=== PATIENT | female | born 1955 | race Caucasian/White ===

== ENCOUNTER 2019-05-05 14:02 | Emergency (ER) | payer OTHER, SELFPAY ==
[2019-05-05 14:18] VITALS: BP 141/76; PULSE 83; RESP 16; TEMP 36.6; O2SAT 99
--- NOTE | 2019-05-05 15:18 | ED.FEMALEGU ---
HPI - Female Genitourinary General Chief complaint: Urogenital-Female Stated complaint: blood in urine Time Seen by Provider: 05/05/19 15:30 Source: patient and RN notes reviewed Mode of arrival: ambulatory Limitations: no limitations History of Present Illness HPI Narrative: 64-year-old female who presents to [facility] care with complaints of urgency, and noting blood in her urine this morning and having some perineum area pressure. Patient states she has no CVA tenderness, denies any burning with her urination or acute pain. Patient states that she has had previous partial hysterectomy and bladder surgery. Patient denies any known fevers, chills,or sweats, denies any nausea, vomiting, or any abdominal pain. Patient denies any vaginal discharge or itching in perineal area. Patient denies any history of diabetes or any history of kidney disease MD elicited complaint: other (Blood in urine, urinary urgency) Pertinent past history: other (Past UTIs) Onset (ago): hour(s) (started this morning) Location of symptoms: perineum (pressure sensation) Severity: mild Female Urogenital Radiation: Non-Radiating Quality of pain: other (pressure) Consistency: intermittent Vaginal discharge: none Vaginal bleeding: none Urinary symptoms: Urgency and Hematuria Exacerbating factors: none Relieving factors: none Associated symptoms: denies other symptoms Treatment prior to arrival: none Sexual activity: No Patient : No Possible : postmenopausal Related Data Home Medications Medication Instructions Recorded Confirmed atorvastatin 20 mg PO DAILY 05/05/19 05/05/19 escitalopram oxalate 10 mg PO DAILY 05/05/19 05/05/19 Allergies Allergy/AdvReac Type Severity Reaction Status Date / Time No Known Allergies Allergy Verified 05/05/19 15:22 Review of Systems Review of Systems: Narrative: CONSTITUTIONAL: Denies fever, chills, or sweats. EYES: Denies visual changes, redness, or discharge. ENT: Denies rhinorrhea, congestion, sore throat, or otalgia. CARDIOVASCULAR: Denies chest pain, palpitations, or edema. RESPIRATORY: Denies cough or dyspnea. GASTROINTESTINAL: Denies abdominal pain, nausea, vomiting, or diarrhea. GENITOURINARY: Denies dysuria positive hematuria and urgency, perineum pressure SKIN: Denies rash or itching. MUSCULOSKELETAL: Denies back pain, joint pain, or myalgia. NEUROLOGIC: Denies headache, numbness to right thigh recent diagnosed with cyst on spine to see neurosurgeon in June, denies any weakness. PSYCHIATRIC: history anxiety or depression. All systems reviewed & are unremarkable except as noted in HPI and below PMFSH Past Medical History Medical History (Updated 05/10/19 @ 17:30 by Maribell Taylor NP) Bronchitis Depression TIA (transient ischemic attack) UTI (urinary tract infection) Surgical History Surgical History (Updated 05/10/19 @ 17:32 by Maribell Taylor NP) History of bladder surgery History of partial hysterectomy Hx of laparoscopic gastric banding Social History Social History (Updated 05/05/19 @ 15:35 by Maribell Taylor NP) Smoking status: Never smoker Living arrangements: with family Gender identity (if verbalized by the patient): Female Comments At time of signature, agree with nursing past medical, , social history. There is no relevant family history pertinent to the presenting complaint Exam Narrative: Exam Narrative: GENERAL: Well-appearing, well-nourished, and in no acute distress. HEAD: Normocephalic, atraumatic. EYES: PERRLA and EOMI. ENT: Nares clear, no rhinorrhea or epistaxis. Mucous membranes moist. NECK: Supple. CHEST: Clear to auscultation. No respiratory distress. HEART: Regular rate and rhythm. No murmur heard. Normal peripheral pulses. ABDOMEN: Soft, nontender, nondistended, normal active bowel sounds.pressure in perineum, no CVA tenderness EXTREMITIES: Normal range of motion. No edema, has some numbness to right thigh and feelings of it being cold,
== END 2019-05-05 15:48 | disposition home or self-care (01) ==
PROVIDERS: Emergency Provider Registered Nurse; PCP Internal Medicine Geriatric Medicine
DX: N39.0 Urinary tract infection, site not specified (principal); Z86.73 Personal history of transient ischemic attack (TIA), and cerebral infarction without residual deficits; Z90.711 Acquired absence of uterus with remaining cervical stump
CPT/HCPCS: 81003; 87077; 87086; 87088; 87186; 99213; G0463

== ENCOUNTER 2020-05-08 13:15 | Emergency (ER) | payer MEDICARE, SELFPAY ==
[2020-05-08 13:23] VITALS: BP 147/98; PULSE 83; RESP 16; TEMP 35.9; O2SAT 98
--- NOTE | 2020-05-08 13:30 | ED.FEMALEGU ---
HPI - Female Genitourinary General Chief complaint: Urogenital-Female Stated complaint: Uti w/blood Time Seen by Provider: 05/08/20 13:31 Source: patient and RN notes reviewed History of Present Illness HPI Narrative: Patient is a 65-year-old female who presents the urgent care with complaints of a possible UTI. Patient states that yesterday she noticed her urine was cloudy and smelly and then woke up this morning with increased frequency, urgency, blood in the urine and dysuria. Patient denies of any fever, chills, nausea, vomiting, abdominal pain, low back pain. Patient states that she is a heavy soda drinker and does have UTIs on occasion. Patient denies of any diagnosis of UTI in the last 6 months. Patient states that she did have recent lab work and everything was fine back in December . Patient has taken cranberry juice for her symptoms. No other acute complaints. No acute distress noted. Patient aware of the plan of care. Some parts of this dictation were generated by voice recognition software and may contain typographical and/or grammatical inaccuracies. Related Data Home Medications Medication Instructions Recorded Confirmed atorvastatin 20 mg PO DAILY 05/05/19 05/08/20 escitalopram oxalate 10 mg PO DAILY 05/05/19 05/08/20 aspirin 81 mg PO DAILY 05/08/20 05/08/20 ergocalciferol (vitamin D2) 1,250 mcg PO DAILY 05/08/20 05/08/20 gabapentin 100 mg PO DAILY 05/08/20 05/08/20 Allergies Allergy/AdvReac Type Severity Reaction Status Date / Time No Known Allergies Allergy Verified 05/05/19 15:22 Review of Systems Review of Systems: Narrative: CONSTITUTIONAL: Denies fever, chills, or sweats. EYES: Denies visual changes, redness, or discharge. ENT: Denies rhinorrhea, congestion, sore throat, or otalgia. CARDIOVASCULAR: Denies chest pain, palpitations, or edema. RESPIRATORY: Denies cough or dyspnea. GASTROINTESTINAL: Denies abdominal pain, nausea, vomiting, or diarrhea. GENITOURINARY: Reports of dysuria, hematuria, urgency, frequency, suprapubic pressure SKIN: Denies rash or itching. MUSCULOSKELETAL: Denies back pain, joint pain, or myalgia. NEUROLOGIC: Denies headache, numbness, or weakness. All other systems reviewed are negative, except as documented in HPI. [facility] Past Medical History Medical History (Updated 05/08/20 @ 13:48 by NATALIE Cai) Bronchitis Depression TIA (transient ischemic attack) UTI (urinary tract infection) Surgical History Surgical History (Updated 05/10/19 @ 17:32 by Maribell Taylor NP) History of bladder surgery History of partial hysterectomy Hx of laparoscopic gastric banding Social History Social History (Updated 05/05/19 @ 15:35 by Maribell Taylor NP) Smoking status: Never smoker Gender identity (if verbalized by the patient): Female Comments At the time of my signature, I reviewed and agree with the nursing past medical, surgical, social, and family history. There is no relevant family history pertinent to the patient complaint. Exam Narrative: Exam Narrative: GENERAL: This is a well-nourished, well-developed patient, in no apparent distress. HEAD: normocephalic, atraumatic. EYES: PERRL. Sclera clear/white. Vision is grossly intact. EARS: External ears normal NOSE: External nose normal with no obvious nasal discharge, nares without redness, no rhinorrhea. THROAT: Mucous membranes moist NECK: Neck supple GASTROINTESTINAL: Abdomen soft, mild left lower abdominal tenderness, nondistended. SKIN: warm, intact with no suspicious lesions or rash, good texture and turgor. NEURO: awake, alert, and oriented to person, place and time. There were no obvious focal neurologic abnormalities. EXTREMITIES: No clubbing, cyanosis, or edema. BACK: Negative bilateral CVA tenderness Course Vital Signs Vital signs: Vital Signs Temperature 96.7 F L 05/08/20 13:23 Pulse Rate 83 05/08/20 13:23 Respiratory Rate 16 05/08/20 13:23 Blood Pressure 147/98 H
== END 2020-05-08 13:51 | disposition home or self-care (01) ==
PROVIDERS: Emergency Provider Nurse Practitioner Family; PCP Internal Medicine Geriatric Medicine
DX: N39.0 Urinary tract infection, site not specified (principal); F32.9 Major depressive disorder, single episode, unspecified; Z86.73 Personal history of transient ischemic attack (TIA), and cerebral infarction without residual deficits
CPT/HCPCS: 81003; 87077; 87086; 87088; 87186; 99213; G0463

== ENCOUNTER 2024-04-16 08:26 | Emergency (ER) | payer MEDICARE, SELFPAY ==
--- OUTSIDE RECORDS SUMMARY | 2024-04-16 08:37 | XMS_ITS | Clinical Summary ---
Author Organization [facility] Address [address] [address] Care Team Providers Care Security Systems Integrator Name Role Phone Fahad Duffy MD Primary Care Provider [phone] Source Comments [facility],non-owned Affiliates and Associated Physician Practices is amultiple site organization consisting of ambulatory clinics and hospital sitesin [place], [place], [place] and [place]. This disclosure is being madepursuant to the Care Everywhere program and may not contain all information available regarding this patient. Last updated 17.[facility] Allergies No known active allergies Medications * Be aware that medications may not be up to date on this document. Alwaysverify current medications with the patient. Medication Sig Dispensed Refills Start Date End Date Status DULoxetine (CYMBALTA) 30 MG capsuleIndications: Major Depressive Disorder Take 30 mg by mouth at bedtime. Indications: Major Depressive Disorder 06/21/2010 Active docusate sodium (COLACE) 100 MG capsule Take 1 Cap by mouth 2 times daily. 100 Cap 5 06/22/2010 Active oxycodone-acetamino phen (PERCOCET) 5-325 MG tablet Take 1 Tab by mouth every 6 hours as needed for Pain. 30 Tab 0 06/22/2010 Active ciprofloxacin (CIPRO) 250 MG tablet Take 1 Tab by mouth daily. This prescription is only required if patient is sent home with a catheter; otherwise, it may be disregarded. 14 Tab 0 06/22/2010 Active Active Problems No known active problems Social History Tobacco Use Types Packs/Day Years Used Date Smoking Tobacco: Never Alcohol Use Standard Drinks/Week Comments No 0 (1 standard drink = 0.6 oz pur e alcohol) Sex and Gender Information Value Date Recorded Sex Assigned at Not on file Gender Identity Not on file Sexual Orientation Not on file Last Filed Vital Signs Vital Sign Reading Time Taken Comments Blood Pressure 102/61 06/22/2010 4:05 PM CDT Pulse 67 06/22/2010 4:05 PM CDT Temperature 36.7 ??C (98.1 ??F) 06/22/2010 4:05 PM CD T Respiratory Rate 20 06/22/2010 4:05 PM CDT Oxygen Saturation 99% 06/22/2010 4:05 PM CDT Inhaled Oxygen Concentration - - Weight 87.9 kg (193 lb 12.6 oz) 06/21/2010 4:00 PM CDT Height 152.4 cm (5') 06/21/2010 4:00 PM CDT Body Mass Index 37.85 06/21/2010 4:00 PM CDT Plan of Treatment Health Maintenance Due Date Last Done Comments BONE DENSITY TESTING 1955 COLOGUARD (AGES 45-75) - COL ON CA SCREENING 1955 COLON MONITORING 1955 COLONOSCOPY - COLON CA SCREENING 1955 CT COLONOGRAPHY - COLON CA SCREENING 1955 Colorectal Cancer Screening 1955 FIT - COLON CA SCREENING 1955 FLEX SIG - COLON CA SCREENING 1955 LIPID TESTING 1955 MAMMOGRAM 1955 HEPATITIS C SCREENING 04/11/1973 DTAP/TDAP/TD VACCINES (1 - Tdap) 1974 PNEUMOCOCCAL VACCINE 50+ (1 of 1 - PCV) 2005 ZOSTER VACCINE (1 of 2) 2005 COVID-19 VACCINE ( - 2023-2 5 season) 2023 INFLUENZA VACCINE (#1) 2023 DEPRESSION SCREENING 03/20/2024 Respiratory Syncytial Virus (RSV) Vaccine Pt: or over 60 yrs (1 - 1-dose 75+ series) 2030 HEPATITIS B VACCINE Aged Out No longe r eligible based on patient's age to complete this topic HIB VACCINE Aged Out No longer eligi ble based on patient's age to complete this topic HPV VACCINE Aged Out No longer eligi ble based on patient's age to complete this topic MENINGOCOCCAL (Group B) VACCINE Aged Out No longer eligible based on patient's age to complete this topic MENINGOCOCCAL VACCINE Aged Out No ana maría karoline eligible based on patient's age to complete this topic Advance Directives * Full Code (Latest Code Status on File) Date Activated Date Inactivated Comments 06/21/2010 10:19 AM 06/23/2010 7:08 AM Care Teams Security Systems Integrator Relationship Specialty Start Date End Date Fahad Duffy MD [address] [address] PCP - General 06/21/10
--- OUTSIDE RECORDS SUMMARY | 2024-04-16 08:37 | XMS_ITS | Referral Summary ---
Author Organization [facility] Address [address] [place] [id number] Care Team Providers Care Plaster Helper Name Role Phone Pa Urbano MD Unavailable [phone] Enrique Gorman MD Primary Care Provider [phone] Encounters Date Type Department Care Team Description 04/10/2024 1:00 PM RELIEF MAN Therapy [facility] [place] [address] Annmarie Brown, PT Balance problem (Primary Dx); Frequent falls 04/03/2024 1:00 PM RELIEF MAN [facility] [place] [address] Efren Griffith, PT Balance problem (Primary Dx); Frequent falls 03/27/2024 2:45 PM RELIEF MAN [facility] [place] [address] Annmarie Brown, PT Balance problem (Primary Dx); Frequent falls 03/07/2024 Plan of Care [facility]ation [facility] [place] [address] 03/07/2024 1:45 PM RELIEF MAN Therapy [facility] [place] [address] Annmarie Brown, PT Balance problem (Primary Dx); Frequent falls 03/01/2024 Orders Only [facility] [address] [phone] Deborah Escobar NP Hypertension, essential (Primary Dx) 03/01/2024 10:45 AM RELIEF MAN Clinical Support [facility] [address] [phone] 02/20/2024 11:00 AM RELIEF MAN Office Visit [facility] [address] [phone] Deborah Escobar NP Physical exam, annual (Primary Dx); FAHAD (obstructive sleep apnea); Hypertension, essential; Encounter for screening mammogram for breast cancer; Osteopenia of lumbar spine; Balance problem; Frequent falls; Vitamin D deficiency; Class 3 severe obesity due to excess calories with serious comorbidity and body mass index (BMI) of 45.0 to 49.9 in adult (HCC) 02/19/2024 9:05 AM RELIEF MAN Lab [facility] [address] [place] [id number] Impaired fasting glucose; Hypertension, essential; Mixed hyperlipidemia 02/12/2024 Telephone [facility] [address] [phone] Deborah Escobar NP from Last 3 Months Allergies No known active allergies Medications aspirin 81 mg enteric coated tabletIndicatio ns:cerebral ischemia Take 1 tablet (81 mg total) by mouth daily 30 tablet 11 9 Active ergocalciferol (VITAMIN D) 50,000 unit capsuleIndicati ons:Vitamin D Deficiency,oste openia TAKE 1 CAPSULE (50,000 UNITS TOTAL) BY MOUTH ONCE a WEEK 12 capsule 1 3 Active metoprolol tartrate (LOPRESSOR) 50 mg immediate release tablet Take 1 tablet (50 mg total) by mouth 2 (two) times a day 60 tablet 11 4 06/13/19 25 Active famotidine (PEPCID) 40 mg tablet TAKE 1 TABLET (40 MG TOTAL) BY MOUTH DAILY 90 tablet 3 4 Active buPROPion XL (WELLBUTRIN XL) 150 mg 24 hr tablet Take 1 tablet (150 mg total) by mouth every morning 90 tablet 4 4 11/03/19 25 Active meclizine (ANTIVERT) 25 mg tablet Take 1 tablet (25 mg total) by mouth 3 (three) times a day as needed for dizziness 30 tablet 1 4 Active escitalopram (LEXAPRO) 20 mg tabletIndicatio ns:Recurrent major depressive disorder, in partial remission (HCC) Take 1 tablet (20 mg total) by mouth daily 90 tablet 3 4 11/01/19 25 Active atorvastatin (LIPITOR) 20 mg tabletIndicatio ns:Hx of transient ischemic attack (TIA) Take 1 tablet (20 mg total) by mouth nightly 30 tablet 11 4 11/06/19 25 Active gabapentin (NEURONTIN) 300 mg capsuleIndicati ons:Paresthesia of right lower extremity TAKE 1 CAPSULE (300 MG) BY MOUTH AT BEDTIME. GRADUALLY INCREASE TO THREE (3) TIMES a DAY TOLERATED. 270 capsule 1 4 Active losartan (COZAAR) 50 mg tabletIndicatio ns:Hypertension , essential Take 1 tablet (50 mg total) by mouth daily 90 tablet 1 4 03/01/20 25 Active Active Problems Problem Noted Date Diagnosed Date FAHAD (obstructive sleep apnea) 12/19/2023 Assessment & Plan (02/20/2024 11:22 AM RELIEF MAN): Following with sleep Medicine, sleep study showing severe FAHAD so patient was recently started on CPAP. She had not yet received machine. Encouraged her to call [facility] for update. Fatigue 11/03/2023 Assessment & Plan (11/03/2023 3:11 PM CDT): Discussed differential diagnoses and multiple factors influencing fatigue including anemia, endocrinopathies, vitamin deficiencies, hormonal imbalance, inadequate sleep, poor diet, and lack of exercise. Encouraged healthy eating and regular physical activity. Reviewed sleep hygiene. Will continue to monitor. Patient does snore. Recommended further evaluation with sleep med. Referral placed. We discussed how untreated FAHAD can cause unrefreshing sleep and excessive daytime sleepiness, as well as how it contributes over the [facility] to cardiovascular risk, recalcitrant hypertension, and stroke risk. Hyperglycemia 11/03/2023 Assessment & Plan (11/03/2023 3:40 PM CDT): Results for orders placed or performed in visit on 11/03/23 POCT hemoglobin A1c Result Value Ref Range Hemoglobin A1C, POC 5.5 4.0 - 5.6 % Vitamin D deficiency 08/17/2023 Assessment & Plan (08/17/2023 11:14 AM CDT): Continue weekly supplementation, encouraged patient to increase vitamin-D rich foods. Impaired fasting glucose 08/17/2023 Hemiplegia and hemiparesis f ollowing cerebral infarction affecting left non-dominant side 06/25/2023 Paresthesia of right lower extremity 02/16/2023 Assessment & Plan (02/16/2023 11:18 AM RELIEF MAN): Encouraged patient to take gabapentin 300 mg daily as prescribed. History of TIA (transient ischemic attack) 08/16 Assessment & Plan (02/16/2023 11:18 AM RELIEF MAN): Secondary prevention. Continue aspirin and atorvastatin 20 mg daily. BP well controlled. Patient reports chronic problems with balance since TIA. Discussed physical therapy referral patient defers at time but will consider the future. Assessment & Plan (08/16/2022 10:03 AM CDT): Continue secondary prevention. Continue to monitor bp closely. Chronic left shoulder pain 08/16/2022 Assessment & Plan (08/16/2022 10:04 AM CDT): Reviewed imaging completed 11/2021. Again, encouraged physical therapy, patient will consider. Recommended use of nsaids as needed. Referral placed to orthopedic surgery for further eval and treatment. Mixed hyperlipidemia 08/16/2022 Assessment & Plan (08/17/2023 11:11 AM CDT): Cholesterol showing improvement, continue atorvastatin daily. Assessment & Plan (02/16/2023 11:12 AM RELIEF MAN): Taking atorvastatin approx 4 times per week, encouraged compliance and use of pill box and or alarms. Reviewed labs with patient. No changes made today. Assessment & Plan (08/16/2022 10:05 AM CDT): Patient occasionally forgets atorvastatin 20 mg daily, discussed use of pill box. May take missed dose the following day. Physical exam, annual 02/14/2022 Assessment & Plan (02/20/2024 11:36 AM RELIEF MAN): Preventive exam; reviewed recommended preventive screenings and vaccinations. Encourage annual flu vaccine. Wear sunscreen/protective clothing when outdoors. Assessment & Plan (02/16/2023 10:48 AM RELIEF MAN): Preventative exam. Reviewed recommended preventative screenings and vaccinations. Discussed health maintenance topics. Encourage regular physical activity. Encouraged annual flu vaccine and pneumococcal vaccine - patient declines.Reviewed labs with patient today. Repeat colonoscopy 01/10/2028. Assessment & Plan (02/14/2022 11:39 AM RELIEF MAN): Preventive exam; reviewed recommended preventive screenings and vaccinations. Encourage annual flu vaccine and pneumococcal vaccine-patient declines. Wear sunscreen/protective clothing when outdoors. Hypertension, essential 02/14/2022 Assessment & Plan (02/20/2024 2:42 PM RELIEF MAN): BP today 180/96, will add daily losartan. Return to office in 1 week for BP check. Continue metoprolol 50 mg twice daily. Reviewed red flags warranting immediate evaluation. Patient denies any chest pain, headaches or visual disturbance. Assessment & Plan (11/03/2023 3:13 PM CDT): BP improved; disucssed importance of compliance. BP readings at home borderline 130/90-100. BP today 136/80. Patient prefers to avoid additional agent at this time, will continue to monitor at home. Can add low dose lisinopril if BP consistently >130 systolic. Assessment & Plan (08/17/2023 11:10 AM CDT): Blood pressure is well controlled, continue present management. Assessment & Plan (02/16/2023 11:01 AM RELIEF MAN): BP well controlled, no change in current medication regimen. Assessment & Plan (08/16/2022 10:03 AM CDT): Diet controlled, discussed lower sodium diet and need for weight loss. Will continue to monitor. Recurrent major depressive disorder, in partial remission 02/14/2022 Assessment & Plan (11/03/2023 3:15 PM CDT): Did not tolerate additional of buspirone. Continues lexapro 20 mg daily. Patient reports feeling seasonal depression, will add bupropion 150 mg daily and monitor response. Assessment & Plan (08/17/2023 11:11 AM CDT): Moods are stable, encouraged patient to increase activity and socializing. Continue buspirone 10 mg twice daily and Lexapro 20 mg daily. Assessment & Plan (02/16/2023 11:11 AM RELIEF MAN): Reports some irritability and lack of motivation, is not taking lexapro daily as prescribed. Encouraged medication compliance and will add buspirone 10 mg bid. Assessment & Plan (08/16/2022 10:03 AM CDT): Continues escitalopram 20 mg daily. Will continue ot monitor. Assessment & Plan (02/14/2022 11:42 AM RELIEF MAN): Moods stable on current medication regimen. Will continue to monitor. Class 3 severe obesity due t o excess calories with serious comorbidity and body mass index (BMI) of 45.0 to 49.9 in adult 07/27/2021 Assessment & Plan (11/03/2023 3:13 PM CDT): Discussed healthy diet and importance of regular physical activity. Assessment & Plan (08/17/2023 10:51 AM CDT): Discussed needed diet changes. Patient has been eating gina bars and drinking lots of sodas. Discussed concern of diabetes. Will continue to monitor. Assessment & Plan (02/14/2022 11:42 AM RELIEF MAN): Discussed healthy diet and importance of regular physical activity. Aware of need for weight loss. Assessment & Plan (07/27/2021 9:58 AM CDT): Reviewed need to lose weight, reviewed health benefits. Reviewed recommendations for daily intake & activity 20-30 minutes/day. Discussed healthy diet and importance of regular physical activity. Osteopenia 07/27/2021 Assessment & Plan (02/20/2024 11:15 AM RELIEF MAN): Encouraged to call and schedule a bone density scan Assessment & Plan (02/14/2022 4:55 PM RELIEF MAN): DEXA scan 07/2021: Lumbar spine T-score is -1.8 Continue calcium and vitamin D supplementation. Assessment & Plan (07/27/2021 10:16 AM CDT): Ergocalciferol 50,000IU weekly. Last dexa 11/2017 showing osteopenia, near osteoporosis L spine (-2.3). Follow a Bone Healthy Diet and lifestyle: -Consume Calcium and vit D rich foods -ergocalciferol 50,000IU weekly. -Fall precautions--be careful. Bone thinning could be an easy fracture. -Perform weight bearing exercises at least 3 days a week for bone strengthening (walking is an excellent option). Refused pneumococcal vaccination 07/27/2021 Assessment & Plan (07/27/2021 10:16 AM CDT): Discussed and the patient refuses immunization today. Educated regarding the need to vaccinate for personal protection. Atypical mole 07/27/2021 Assessment & Plan (07/27/2021 10:15 AM CDT): Referral to Dr Mp Cisse for eval. Contact info given for her office. Aware to call if she's not heard from her office. Discussed checking w/other derms to see to whom she can get into quicker. Acute ischemic stroke 02/24/2019 TIA (transient ischemic attack) Assessment & Plan (02/14/2022 11:43 AM RELIEF MAN): Mild residual weakness of left arm/leg/ankle. Discussed secondary prevention. Continue atorvastatin and daily asa. Resolved Problems Problem Noted Date Diagnosed Date Resolved Date Hypertensive urgency 02/23/2019 022 Morbid obesity (CMS/HCC) 02/23/201912/2021 Chronic depression 02/23/2019 2 Screening for colon cancer 12/05/2017 0 07/27/2021 Overview (12/05/2017): Added automatically from request for surgery [id number] Immunizations Name Administration Dates Next Due Influenza, Unspecified 02/20/2024(Deferr ed: Patient Refused),08/17/2023(Deferred: Patient Refused),06/16/2023(Deferred: Patient Refused),02/16/2023(Deferred: Patient Refused),12/18/2022(Deferred: Patient Refused),12/18/2022(Deferred: Patient Refused),12/18/2022(Deferred: Patient Refused),02/14/2022(Deferred: Patient Refused),12/18/2021(Deferred: Patient Refused),12/18/2021(Deferred: Patient Refused),12/18/2021(Deferred: Patient Refused),12/18/2021(Deferred: Patient Refused),12/18/2021(Deferred: Patient Refused),11/26/2021(Deferred: Patient Refused),03/20/2021(Deferred: Patient Refused),02/09/2021(Deferred: Patient Refused),12/18/2020(Deferred: Patient Refused),12/18/2020(Deferred: Patient Refused),12/18/2020(Deferred: Patient Refused),12/18/2020(Deferred: Patient Refused),11/18/2020(Deferred: Patient Refused),03/20/2020(Deferred: Patient Refused),12/19/2019(Deferred: Patient Refused) Moderna SARS-CoV-2 Monovalen t Vaccination (12+ YRS) 03/12/2021,06/08/2020,05/06/2020 Pneumococcal Polysaccharide PPV23 07/27/2021(Def erred: Patient Refused) Social History Tobacco Use Types Packs/Day Years Used Date Smoking Tobacco: Never Smokeless Tobacco: Never Tobacco Cessation:Counseling Given: Not Answered Alcohol Use Standard Drinks/Week Comments No 0 (1 standard drink = 0.6 oz pur e alcohol) PHQ-2 Answer Date Recorded PHQ-2 Total Score (If total score is 3 or more points, staff should administer the PHQ-9) 0 02/20/2024 Personal Safety Answer Date Recorded Have you ever been in or are you currently in a harmful physical or emotional relationship or is someone making you feel afraid or unsafe? Denies 11/02/2023 Comments No Sex and Gender Information Value Date Recorded Sex Assigned at Not on file Legal Sex Female 2:09 AM RELIEF MAN Gender Identity Female 01/02/2020 8:19 AM CDT Sexual Orientation Straight 01/02/2020 8: 19 AM CDT Occupation Industry Job Start Date Job End Date retired Not on file Not on file Not on file Last Filed Vital Signs Vital Sign Reading Time Taken Comments Blood Pressure 144/86 03/01/2024 11:02 AM RELIEF MAN Pulse 60 03/01/2024 11:02 AM RELIEF MAN Temperature 36.7 ??C (98 ??F) 02/20/2024 11:03 AM RELIEF MAN Respiratory Rate 17 02/20/2024 11:03 AM RELIEF MAN Oxygen Saturation 98% 02/20/2024 11:03 AM RELIEF MAN Inhaled Oxygen Concentration - - Weight 105.7 kg (233 lb) 02/20/2024 11:03 AM RELIEF MAN Height 152.4 cm (5') 02/20/2024 11:03 AM RELIEF MAN Body Mass Index 45.5 02/20/2024 11:03 AM RELIEF MAN Plan of Treatment Not on file Procedures Procedure Name Priority Date/Time Associated Diagnosis Comments EGFR Routine 02/19/2024 9:03 AM RELIEF MAN Hypertension, essential Mixed hyperlipidemia DIFFERENTIAL AUTO Routine 02/19/2024 9:0 3 AM RELIEF MAN Hypertension, essential Mixed hyperlipidemia CBC WITH AUTO DIFFERENTIAL Routine 02/19/2024 9:03 AM RELIEF MAN Hypertension, essential Mixed hyperlipidemia COMPREHENSIVE METABOLIC PANEL Routine 02/19/2024 9:03 AM RELIEF MAN Hypertension, essential Mixed hyperlipidemia LIPID PANEL Routine 02/19/2024 9:03 AM RELIEF MAN Hypertension, essential Mixed hyperlipidemia HEMOGLOBIN A1C Routine 02/19/2024 9:03 AM RELIEF MAN Impaired fasting glucose SCREENING MAMMOGRAM BILATERAL W OWEN Schedule Routine, Read Routine (OP Routine) 06/13/2022 10:23 AM CDT Screening mammogram, encounter for DEXA AXIAL SKELETON BONE DENSITY 1 OR MORE SITES Schedule Routine, Read Routine (OP Routine) 08/04/2021 8:30 AM CDT Osteopenia, unspecified location COLONOSCOPY 01/09/2018 10:18 AM CDT from Last 3 Months or Most Recently Relevant to Health Maintenance Results * eGFR (02/19/2024 9:03 AM RELIEF MAN) eGFR 84 >=60 mL/min/1. 73 m2 Comment: Interpretive Data Reference Interval Normal ?>/= 90 mL/min/1.73m2 Mildly decreased* ? 60 - 89 mL/min/1.73m2 Mildly to moderately decreased ?45 - 59 mL/min/1.73m2 Moderately to severely decreased ??30 - 44 mL/min/1.73m2 Severely decreased ?15 - 29 mL/min/1.73m2 Kidney Failure ?< 15 ??mL/min/1.73m2 *Relative to young adult level Estimated glomerular filtration rate is determined by the 2020 CKD-EPI equation recommended by the National Kidney Foundation (A Unifying Approach to GFR Estimation: Recommendations of the NKF-ASK Task Force on Reassessing the Inclusion of Race in Diagnosing Kidney Disease, JASN 2020). The CKD-EPI equation should not be used for patients with unstable renal function and has not been validated in children and those over 70. Current interpretive data was last reviewed 2021. Testing performed by: [facility], [address] [place] [address]., [id number] Blood 02/19/2024 9:03 AM RELIEF MAN 02/19/2024 12:56 PM RELIEF MAN Deborah Escobar SCALEMAKER LAB BLOOD ORDERABLES Final Result YAKOV SEGURA ([place]) 1 [facility] Department [place] [address] * Differential, auto (02/19/2024 9:03 AM RELIEF MAN) Neutrophil abs 1.9 1.5 - 6.5 K/cumm Comment:Testing performed by : [facility], [address] [place] [address], [id number] Imm gran abs 0.0 0.0 - 0.1 K/cumm [facility] ([place]) Comment:Testing performed by : [facility], [address] [place] [address], [id number] Lymphocyte abs 1.1 0.8 - 3.3 K/cumm [facility] ([place]) Comment:Testing performed by : [address] [address] Monocyte abs 0.3 0.2 - 0.8 K/cumm [facility] ([facility]) Comment:Testing performed by : [facility], [address] [place] [address]., [address] Eosinophil abs 0.2 0.0 - 0.5 K/cumm [facility] ([facility]) Comment:Testing performed by : [address] [address] Basophil abs 0.1 0.0 - 0.1 K/cumm [facility] ([place]) Comment:Testing performed by : [address], [address] Neutrophil pct 52.7 % [facility] ([place]) Comment: Interpretive Data Percent cell count reference ranges are not reported, since discordance with absolute values may lead to misinterpretation of CBC data. Current Interpretive Data was last revised on 2017. Testing performed by: [facility], [address] [place] [address]., [address] Imm gran pct 0.0 % [facility] ([place]) Comment: Interpretive Data Percent cell count reference ranges are not reported, since discordance with absolute values may lead to misinterpretation of CBC data. Current Interpretive Data was last revised on 2017. Testing performed by: [address] [address] Lymphocyte pct 31.6 % [facility] ([place]) Comment: Interpretive Data Percent cell count reference ranges are not reported, since discordance with absolute values may lead to misinterpretation of CBC data. Current Interpretive Data was last revised on 2017. Testing performed by: [address] [address] Monocyte pct 8.4 % [facility] ([place]) Comment: Interpretive Data Percent cell count reference ranges are not reported, since discordance with absolute values may lead to misinterpretation of CBC data. Current Interpretive Data was last revised on 2017. Testing performed by: [address] [address] Eosinophil pct 5.9 % [facility] ([place]) Comment: Interpretive Data Percent cell count reference ranges are not reported, since discordance with absolute values may lead to misinterpretation of CBC data. Current Interpretive Data was last revised on 2017. Testing performed by: [address] [address] Basophil pct 1.4 % [facility] ([place]) Comment: Interpretive Data Percent cell count reference ranges are not reported, since discordance with absolute values may lead to misinterpretation of CBC data. Current Interpretive Data was last revised on 2017. Testing performed by: [address], [address] Blood 02/19/2024 9:03 AM RELIEF MAN 02/19/2024 12:45 PM RELIEF MAN Deborah Escobar SCALEMAKER LAB BLOOD ORDERABLES Final Result [facility] ([place]) 1 [facility] Department [place] [address] * (ABNORMAL) CBC with auto differential (02/19/2024 9:03 AM RELIEF MAN) WBC 3.6(L) 3.8 - 9.9 K/cumm Comment:Testing performed by : [facility], [address] [place] [address], [address] Hgb 13.1 11.9 - 15.5 g/dL [facility] ([place]) Comment:Testing performed by : [address], [address] Hct 42.3 35.6 - 45.5 % [facility] ([place]) Comment:Testing performed by : [address], [address] Plt 244 150 - 400 K/cumm [facility] ([place]) Comment:Testing performed by : [address], [address] MPV 9.0(L) 9.1 - 12.3 fL [facility] ([place]) Comment:Testing performed by : [address], [address] RBC 4.51 3.90 - 5.20 M/cumm [facility] ([place]) Comment:Testing performed by : [address], [address] MCV 93.8 81.3 - 96.4 fL [facility] ([place]) Comment:Testing performed by : [address], [address] MCH 29.0 27.1 - 33.3 pg [facility] ([place]) Comment:Testing performed by : [address], [address] MCHC 31.0(L) 32.3 - 35.7 g/dL [facility] ([place]) Comment:Testing performed by : [address], [address] RDW CV 13.6 11.1 - 14.9 % YAKOV SEGURA ([place]) Comment:Testing performed by : [facility], [address] [place] [address], [address] RDW SD 46.6 35.7 - 48.1 fL YAKOV SEGURA ([place]) Comment:Testing performed by : [facility], [address] [place] [address], [id number] NRBC abs 0.00 0.00 - 0.01 K/cumm YAKOV SEGURA ([place]) Comment:Testing performed by : [facility], [address] [place] [address], [id number] Blood 02/19/2024 9:03 AM RELIEF MAN 02/19/2024 12:45 PM RELIEF MAN Deborah Escobar SCALEMAKER LAB BLOOD ORDERABLES Final Result Performing Organization Address City/[facility] Hospital/ZIP Co de Phone Number YAKOV SEGURA ([place]) 1 [facility] Department [place] [address] * (ABNORMAL) Hemoglobin A1c (02/19/2024 9:03 AM RELIEF MAN) [facility] Hgb A1C 6.0(H) 4.0 - 5.6 % Comment:Testing performed by : [address], [address] Estimated Average Glucose 126 mg/dL YAKOV SEGURA ([place]) Comment: The ADA recommends reporting an estimated Average Glucose (eAG) with all Hemoglobin A1c results using the equation derived from a study of 507 normal and diabetic adults. ??Minority populations were underrepresented and children were not included. ?? (Diabetes Care 31:1398-2748, 2008). ??The eAG is not equivalent to a fasting glucose. Testing performed by: [facility], [address] [place] [address]., [id number] Blood 02/19/2024 9:03 AM RELIEF MAN 02/19/2024 12:45 PM RELIEF MAN Deborah Escobar NP LAB BLOOD ORDERABLES Final Result Performing Organization Address City/[facility] Hospital/ZIP Co de Phone Number YAKOV SEGURA ([place]) 1 [facility] Department [place] [address] * Lipid panel (02/19/2024 9:03 AM RELIEF MAN) [facility] Cholesterol 132 30 - 199 mg/dL Comment: Interpretive Data Ages < or = 19 years ??Acceptable: ? <170 mg/dL ??Borderline high: ??170-199 mg/dL ??High: ? >or= 200 mg/dL Ages > or = 20 years ??Desirable: ?<200 mg/dL ??Borderline high: ??200-239 mg/dL ??High: ? >or= 240 mg/dL Literature References: 1. Expert Panel on Integrated Guidelines for Cardiovascular Health and Risk Reduction in Children and Adolescents. Pediatrics 2011;128:S213 2. NCEP Expert Panel. Circulation 2004;110:227 Current Interpretive Data was last revised on 2017. Testing performed by: [facility], [address] [place] [address]., [id number] Triglycerides 82 <=149 mg/dL YAKOV SEGURA ([place]) Comment: Interpretive Data Ages < or = 9 years ??Acceptable: ? <75 mg/dL ??Borderline high: ??75-99 mg/dL ??High: ? >or= 100 mg/dL Ages 10 to 20 years ??Acceptable: ? <90 mg/dL ??Borderline high: ??90-129 mg/dL ??High: ? >or= 130 mg/dL Ages > or = 20 years ??Desirable: ?<150 mg/dL ??Borderline high: ??150-199 mg/dL ??High: ? 200-499 mg/dL ?Very high: ?? >or= 499 mg/dL Literature References: 1. Expert Panel on Integrated Guidelines for Cardiovascular Health and Risk Reduction in Children and Adolescents. Pediatrics 2011;128:S213 2. NCEP Expert Panel. Circulation 2004;110:227 Current Interpretive Data was last revised on 2017. Testing performed by: [facility], [address] [place] [address]., [id number] HDL 52 >=40 mg/dL YAKOV Flores ([place]) Comment: Interpretive Data Ages < or = 19 years ??Acceptable: ? >45 mg/dL ??Borderline low: ?? 40-45 mg/dL ??Low: ? <40 mg/dL Ages > or = 20 years ??Desirable: ?>or= 60 mg/dL ??Low: ? <40 mg/dL Literature References: 1. Expert Panel on Integrated Guidelines for Cardiovascular Health and Risk Reduction in Children and Adolescents. Pediatrics 2011;128:S213 2. NCEP Expert Panel. Circulation 2004;110:227 Current Interpretive Data was last revised on 2017. Testing performed by: [facility], [address] [place] [address]., [id number] LDL, calculated 64 <=129 mg/dL YAKOV SEGURA (PATIENCE) Comment: Interpretive Data Ages < or = 19 years ??Acceptable: ? <110 mg/dL ??Borderline high: ??110-129 mg/dL ??High: ?>or= 130 mg/dL Ages > or = 20 years ??Optimal: ? <100 mg/dL ??Near optimal: ?100-129 mg/dL ??Borderline high: ?? 130-159 mg/dL ??High: ?>160 mg/dL Calculated using the Naawf LDL-C estimating equation. This equation was implemented on 2023. Prior to this date LDL-C was estimated using the Friedewald equation. Literature References: 1. Expert Panel on Integrated Guidelines for Cardiovascular Health and Risk Reduction in Children and Adolescents. Pediatrics 2011;128:S213 2. NCEP Expert Panel. Circulation 2004;110:227 3. Nawaf Swan et al. MARCO Cardiol. 2020 July 18;5(5):540-548. doi: 10.1001/jamacardio.2020.0013 Current Interpretive Data was last revised on 2023. Testing performed by: [facility], [address] [place] [address]., [id number] Non-HDL Cholesterol 80 mg/dL YAKOV SEGURA (PATIENCE) Comment: Interpretive Data Ages < or = 19 years ??Acceptable: ?<120 mg/dL ??Borderline high: ??120-144 mg/dL ??High: ?>145 mg/dL Ages > or = 20 years ??When triglycerides are >200 mg/dL, Non-HDL cholesterol is a secondary target of ? therapy with treatment goals that are 30 mg/dL greater than the LDL cholesterol target. ? Literature References: 1. Expert Panel on Integrated Guidelines for Cardiovascular Health and Risk Reduction in Children and Adolescents. Pediatrics 2011;128:S213 2. NCEP Expert Panel. Circulation 2004;110:227 Current Interpretive Data was last revised on 2017. Testing performed by: [address] [address] Chol/HDL ratio 3 CERNE R IMELDA (PATIENCE) Comment:Testing performed by : [address] [address] Blood 02/19/2024 9:03 AM RELIEF MAN 02/19/2024 12:45 PM RELIEF MAN Deborah Escobar SCALEMAKER LAB BLOOD ORDERABLES Final Result YAKOV SEGURA (PATIENCE) 1 [facility] Department [place] [address] * Comprehensive metabolic panel (02/19/2024 9:03 AM RELIEF MAN) Sodium 143 135 - 145 mmol/L Comment:Testing performed by : [address] [address] Potassium, pl 3.9 3.3 - 4.9 mmol/L YAKOV SEGURA (PATIENCE) Comment:Testing performed by : [address] [address] Chloride 106 97 - 110 mmol/L [facility] (PATIENCE) Comment:Testing performed by : [facility], [address] [place] [address]., [address] CO2 27 22 - 32 mmol/L [facility] (PATIENCE) Comment:Testing performed by : [facility], [address] [place] [address]., [address] Anion gap 10 2 - 15 mmol/L [facility] (PATIENCE) Comment:Testing performed by : [facility], [address] [place] [address], [id number] BUN 14 6 - 25 mg/dL [facility] (PATIENCE) Comment:Testing performed by : [facility], [address] [place] [address], [id number] Creatinine 0.77 0.60 - 1.10 mg/dL [facility] (PATIENCE) Comment:Testing performed by : [facility], [address] [place] [address], [address] Glucose 118 70 - 199 mg/dL [facility] (PATIENCE) Comment: Interpretive Data Fasting glucose >/= 126 mg/dl is diagnostic for diabetes. ?? Fasting is defined as no caloric intake for at least 8 hours. Fasting glucose between 100 mg/dl to 125 mg/dl is diagnostic of prediabetes. In a patient with classic symptoms of hyperglycemia or hyperglycemic crisis, a random glucose >/= 200 mg/dl is diagnostic for diabetes. In the absence of unequivocal hyperglycemia, results should be confirmed by repeat testing. The classification and Diagnosis of Diabetes Diabetes Care 2021; 46: S19-S40. Current interpretive data was last revised 2022. Testing performed by: [facility], [address] [place] [address]., [address] Calcium 9.1 8.5 - 10.3 mg/dL [facility] (PATIENCE) Comment:Testing performed by : [address] [address] Bilirubin, total 0.5 0.1 - 1.2 mg/dL [facility] (PATIENCE) Comment:Testing performed by : [address], [address] Protein, pl 6.7 6.5 - 8.5 g/dL [facility] (PATIENCE) Comment:Testing performed by : [address], [address] Albumin 3.8 3.5 - 5.0 g/dL [facility] (PATIENCE) Comment:Testing performed by : [facility], [address] [place] [address]., [address] Alk phos 84 40 - 130 Units/L [facility] (PATIENCE) Comment:Testing performed by : [facility], [address] [place] [address]., [address] ALT 7 7 - 45 Units/L [facility] (PATIENCE) Comment:Testing performed by : [facility], [address] [place] [address], [address] AST 25 10 - 45 Units/L [facility] (PATIENCE) Comment:Testing performed by : [facility], [address] [place] [address], [address] Blood 02/19/2024 9:03 AM RELIEF MAN 02/19/2024 12:45 PM RELIEF MAN Deborah Escobar SCALEMAKER LAB BLOOD ORDERABLES Final Result Performing Organization Address City/State/[facility] Co de Phone Number YAKOV [facility] 1 [facility] [place] [address] * Screening Mammogram Bilateral W Owen (06/13/2022 10:23 AM CDT) Anatomical Region Laterality Modality Breast Bilateral Mammography 06/13/2022 10:5 3 AM CDT Impressions 06/13/2022 10:53 AM CDT There is no mammographic evidence of malignancy. A 1 year screening mammogram is recommended. BI-RADS: 1 - Negative. The patient has been or will be contacted. The patient will be entered into a reminder system with a target due date of 1 year for her next mammogram. Electronically signed by: JAMES RAYGOZA Narrative 06/13/2022 10:53 AM CDT EXAMINATION: SCREENING MAMMOGRAM BILATERAL W OWEN ORDERING HEALTHCARE PROVIDER: SELF SCREENING MAMMOGRAM HISTORY: Routine screening mammography. COMPARISON: ??05/15/2021, 12/19/2019, 12/12/2017. TECHNIQUE: CC and MLO views of both breasts were obtained with digital technique using digital breast tomosynthesis with C view. Computer aided detection was utilized. FINDINGS: DENSITY: The breasts have scattered areas of fibroglandular density. BREASTS: There is no new suspicious finding in either breast on mammogram. us Self Screening Mammogram IMG MAMMO PROCEDURES Fi nal Result * Dexa Axial Skeleton Bone Density 1 or 2 Site (08/04/2021 8:30 AM CDT) Anatomical Region Laterality Modality Body N/A Other 08/04/2021 9:46 PM CDT Narrative 08/04/2021 9:48 PM CDT EXAM DESCRIPTION: ?? DEXA AXIAL SKELETON BONE DENSITY 1 OR MORE SITES REASON FOR STUDY: ?66 y/o ?? year old ?? F ??with given history of screening. Plastic Fabricator/Model: ?? NurseGrid SL (S/N [id number]) CLINICAL INFORMATION: Current height: ?? 60 ??inches ? Maximum height: 60 inches ? Weight: 223 pounds Risk factors: Parental hip fracture, postmenopausal COMPARISON: 12/12/2017, 05/31/2011. FINDINGS: AP LUMBAR SPINE L1-L2: Total BMD is ?? 0.786 ??g/cm2 T-score is -1.8 Dissimilar scan types or analysis methods precludes assessment for calculating a significant change. LEFT HIP: Total BMD is 0.87 g/cm2 T-score is -0.6 This is a statistically significant decrease from prior exam. Femoral neck BMD is 0.727 g/cm2 T-score is -1.1 IMPRESSION: ??Based on the lumbar spine bone mineral density (T-score -1.8) the patient has low bone mass. Fracture risk assessment (FRAX): ? 10 year risk for a major osteoporotic fracture is 13 % ? 10 year risk for a hip fracture is 0.7 % The FRAX tool has not been validated in patients currently or previously treated with pharmacotherapy for osteoporosis. ??In such patients, clinical judgement must be exercised in interpreting FRAX scores as the fracture risk may be overestimated. ?? REFERENCE: Bone mineral density: ? Normal (T-score above or = -1.0) ? Low bone mass ??(T-score between -1.0 and -2.5) replaces the previously used term osteopenia ? Osteoporosis (T-score = or below -2.5) Medical evaluation for secondary causes of low bone mineral density may be appropriate. FRAX is a World Health Organization validated fracture risk assessment tool that calculates a person's 10 year probability of a major osteoporosis related fracture and hip fracture. ??According to the National Osteoporosis Foundation guidelines, postmenopausal women and men age 50 or older with low bone mass and a 10 year probability of a major osteoporosis related fracture = or greater than 20% or a 10 year probability of a hip fracture = or greater than 3% should be considered for treatment. For further information, including treatment recommendations, please refer to the 2013 ISCD Official Positions (http://www.iscd.org) and the NOF's Clinician's Guide to Prevention and Treatment of Osteoporosis (http://www.nof.org/professionals/clinical-guidelines) THIS IS AN ELECTRONICALLY VERIFIED FINAL REPORT 08/04/2021 9:48 PM - Electronically signed by ??Pa Ruiz M.D. MF: [email or web address] D: ??08/04/2021 9:48 PM T: ??08/04/2021 9:48 PM Report ID: [id number] Reading Location: ??[id number] Procedure Note Pa Ruiz MD - 08/04/2021 EXAM DESCRIPTION: DEXA AXIAL SKELETON BONE DENSITY 1 OR MORE SITES REASON FOR STUDY: 66 y/o year old F with given history ofscreening. Plastic Fabricator/Model: NurseGrid SL (S/N [id number]) CLINICAL INFORMATION: Current height: 60 inches Maximum height: 60 inches Weight: 223 pounds Risk factors: Parental hip fracture, postmenopausal COMPARISON: 12/12/2017, 05/31/2011. FINDINGS: AP LUMBAR SPINE L1-L2: Total BMD is 0.786 g/cm2 T-score is -1.8 Dissimilar scan types or analysis methods precludes assessment for calculating a significant change. LEFT HIP: Total BMD is 0.87 g/cm2 T-score is -0.6 This is a statistically significant decrease from prior exam. Femoral neck BMD is 0.727 g/cm2 T-score is -1.1 IMPRESSION: Based on the lumbar spine bone mineral density (T-score -1.8) thepatient has low bone mass. Fracture risk assessment (FRAX): 10 year risk for a major osteoporotic fracture is 13 % 10 year risk for a hip fracture is 0.7 % The FRAX tool has not been validated in patients currently or previously treated with pharmacotherapy for osteoporosis. In such patients, clinical judgement must be exercised in interpreting FRAX scores as the fracturerisk may be overestimated. REFERENCE: Bone mineral density: Normal (T-score above or = -1.0) Low bone mass (T-score between -1.0 and -2.5) replaces thepreviously used term osteopenia Osteoporosis (T-score = or below -2.5) Medical evaluation for secondary causes of low bone mineral density may be appropriate. FRAX is a World Health Organization validated fracture risk assessmenttool that calculates a person's 10 year probability of a major osteoporosisrelated fracture and hip fracture. According to the National OsteoporosisFoundation guidelines, postmenopausal women and men age 50 or older with low bonemass and a 10 year probability of a major osteoporosis related fracture = or greater than 20% or a 10 year probability of a hip fracture = or greaterthan 3% should be considered for treatment. For further information, including treatment recommendations, please referto the 2013 ISCD Official Positions (http://www.iscd.org) and the NOF's Clinician's Guide to Prevention and Treatment of Osteoporosis (http://www.nof.org/professionals/clinical-guidelines) THIS IS AN ELECTRONICALLY VERIFIED FINAL REPORT 08/04/2021 9:48 PM - Electronically signed by aP Ruiz M.D. MF: [email or web address] Report ID: [id number] Reading Location: [id number] us Karolyn Morrissey NP IMGrzegorz DXA PROCEDURES Final Result * COLONOSCOPY (01/09/2018 10:18 AM CDT) Anatomical Region Laterality Modality Other Narrative Procedure Note Alphonso Morgan MD - 01/09/2018 10:18 AM CDT [facility] Patient Name: Deb Esposito Procedure Date: 01/09/2018 10:18AM Date of : 1955 Admit Type: Outpatient Age: 62 Gender: Female Attending MD: Alphonso Morgan M.D. Room: [facility] ENDOSCOPY ROOM 1 Note Status: Finalized Procedure: Colonoscopy Indications: Screening for colorectal malignant neoplasm Referring MD: Manuel Romero M.D. Providers: Alphonso Morgan M.D. Impression: - Internal hemorrhoids that prolapse with straining, but require manual replacement into the anal canal (Grade III) found on digital rectal exam. - Diverticulosis in the sigmoid colon and in the transverse colon. - The examination was otherwise normal. - No specimens collected. Recommendation: - Discharge patient to home. - Resume previous diet. - Continue present medications. - Repeat colonoscopy in 10 years for screeningpurposes. - Return to primary care physician as previously scheduled. Medicines: Propofol per Anesthesia Complications: No immediate complications. Estimated Blood Loss: Estimated blood loss: none. Procedure: The benefits, risks and alternatives of theprocedure and sedation were discussed and informed consent was obtained. All questions were answered. Please referto the signed informed consent document in the medical record. The scope was passed under direct vision.The Colonoscope [id number] was introducedthrough the anus and advanced to the the cecum, identifiedby appendiceal orifice and ileocecal valve. The colonoscopy was performed without difficulty. The patient tolerated the procedure well. The quality of the bowel preparation was good. Findings: The digital rectal exam findings include internal hemorrhoids that prolapse with straining, but require manual replacement into the anal canal (Grade III). A few small-mouthed diverticula were found in the sigmoid colon and transverse colon. The exam was otherwise without abnormality. Electronically signed by Alphonso Morgan M.D. Alphonso Morgan M.D. 01/09/2018 10:49:27 AM Number of Addenda: 0 Note Initiated On: 01/09/2018 10:18 AM Procedure Code(s): --- Professional --- G0121, Colorectal cancer screening; colonoscopy on individual not meeting criteria for high risk Diagnosis Code(s): --- Professional --- K57.30, Diverticulosis of large intestine without perforation orabscess without bleeding K64.2, Third degree hemorrhoids Z12.11, Encounter for screening for malignant neoplasm of colon CPT copyright 2017 [employer]. All rights reserved. The codes documented in this report are preliminary and upon occupational medicine specialist reviewmay be revised to meet current compliance requirements. Recognized by the [employer] for promoting quality in endoscopy Alphonso Morgan MD ENDOSCOPY PROCEDURES Final Re sult from Last 3 Months or Most Recently Relevant to Health Maintenance Insurance MEDICARE COMMERCIAL GENERIC [facility] CHOICE PLUS MEDICARE COMMERCIAL GENERIC MEDICARE [facility] Address: [address] [address] [place] [address] Advance Directives For more information, please contact: [phone] * Full Code (Latest Code Status on File) Date Activated Date Inactivated Comments 02/23/2019 3:05 PM 02/25/2019 7:24 PM * Full Code Date Activated Date Inactivated Comments 01/09/2018 9:46 AM 01/09/2018 1:32 PM * Full Code Date Activated Date Inactivated Comments 01/09/2018 9:46 AM 01/09/2018 9:46 AM Care Teams Plaster Helper Relationship Specialty Start Date End [place] [address] PCP - General Family Medicine 02/09/21 Pa Urbano MD [address] [place] [address] [place] [address] Consulting Physician Neurology 02/25/19
--- OUTSIDE RECORDS SUMMARY | 2024-04-16 08:37 | XMS_ITS | Patient Health Summary ---
Author Organization [facility] [employer] Address [address] [place] [address] Care Team Providers Care Transmission Design Engineer Name Role Phone Fahad Duffy MD Primary Care Provider [phone] Note from [facility],non-owned Affiliates and Associated Physician Practices is amultiple site organization consisting of ambulatory clinics and hospital sitesin [place], [place], [place] and [place]. This disclosure is being madepursuant to the Care Everywhere program and may not contain all information available regarding this patient. Last updated 17.[facility] [employer] Allergies No known active allergies Medications * Be aware that medications may not be up to date on this document. Alwaysverify current medications with the patient. * DULoxetine (CYMBALTA) 30 MG capsule(Started 06/21/2010) Take 30 mg by mouth at bedtime. Indications: Major Depressive Disorder * docusate sodium (COLACE) 100 MG capsule(Started 06/22/2010) Take 1 Cap by mouth 2 times daily. 5 refills left * oxycodone-acetaminophen (PERCOCET) 5-325 MG tablet(Started 06/22/2010) Take 1 Tab by mouth every 6 hours as needed for Pain. * ciprofloxacin (CIPRO) 250 MG tablet(Started 06/22/2010) Take 1 Tab by mouth daily. This prescription is only required if patient is sent home with a catheter; otherwise, it may be disregarded. Active Problems No known active problems Social [...] Mass Index 37.85 06/21/2010 4:00 PM CDT Procedures * UROFLOWMETRY(Performed 06/23/2010) * CARDIAC EKG ORDER(Performed 06/23/2010) * HGB HCT PANEL(Performed 06/22/2010) * TYPE + SCREEN PANEL(Performed 06/21/2010) Results * CARDIAC EKG ORDER (06/23/2010 9:20 AM CDT) Narrative Procedure Note Document, Scanned - 06/23/2010 9:02 AM CDT Scanned Document CARDIAC SERVICES ORD ERABLES * UROFLOWMETRY (06/23/2010 9:20 AM CDT) Narrative Procedure Note Document, Scanned - 06/23/2010 9:02 AM CDT Scanned Document PROCEDURE ORDERAB LES * HGB HCT PANEL (06/22/2010 4:52 AM CDT) Hemoglobin 12.1 12.0 - 16.0 gm/dl [facility] Hematocrit 36.0 36.0 - 48.0 % [facility] BLOOD SPECIMEN / Unknown 06/22/2010 4:52 AM CDT 06/22/2010 4:52 AM CDT Suzanne Culp MD LAB - HEMATOLOG Y ORDERABLES [facility] [address] [place] [address] * TYPE + SCREEN PANEL (06/21/2010 9:00 AM CDT) ABO Rh AB Pos [facility] Antibody Screen Neg Negative [facility] BLOOD SPECIMEN / Unknown 06/21/2010 9:00 AM CDT 06/21/2010 9:07 AM CDT Brooks Parson MD LAB - BLOOD BANK ORD ERABLES [facility] [address] [place] [address] Care Teams Transmission Design Engineer Relationship Specialty Start Date End Date Fahad Duffy MD [address] [id number] PCP - General 06/21/10
--- OUTSIDE RECORDS SUMMARY | 2024-04-16 08:37 | XMS_ITS | Referral Summary ---
Author Organization [facility] Address [address] [place] [address] Care Team Providers Care Service Captain Name Role Phone Fahad Duffy MD Primary Care Provider [phone] Source Comments [facility] [employer],non-owned Affiliates and Associated Physician Practices is amultiple site organization consisting of ambulatory clinics and hospital sitesin [place], [place], [place] and [place]. This disclosure is being madepursuant to the Care Everywhere program and may not contain all information available regarding this patient. Last updated 17.[facility] [employer] Allergies No known active allergies Medications * [...] 06/21/2010 4:00 PM CDT Plan of Treatment Not on file Advance Directives * Full Code (Latest Code Status on File) Date Activated Date Inactivated Comments 06/21/2010 10:19 AM 06/23/2010 7:08 AM Care Teams Service Captain Relationship Specialty Start Date End Date Fahad Duffy MD [address] [place] [id number] PCP - General 06/21/10
--- OUTSIDE RECORDS SUMMARY | 2024-04-16 08:38 | XMS_ITS | Clinical Summary ---
Author Organization [facility] Address [address] [place] [id number] Care Team Providers Care Pathology Laboratory Director Name Role Phone Pa Urbano MD Unavailable [phone] Enrique Gorman MD Primary Care Provider [phone] Allergies No known active allergies Medications aspirin [...] 12/19/2023 Assessment & Plan (02/20/2024 11:22 AM FINE JEWELRY SALES ASSOCIATE): Following with sleep Medicine, sleep study showing severe FAHAD so patient was recently started on CPAP. She had not yet received machine. Encouraged her to call [facility] for update. Fatigue 11/03/2023 Assessment & Plan [...] well as how it contributes over the pen[facility] to cardiovascular risk, recalcitrant hypertension, and stroke [...] 02/16/2023 Assessment & Plan (02/16/2023 11:18 AM FINE JEWELRY SALES ASSOCIATE): Encouraged patient to take gabapentin 300 mg daily as prescribed. History of TIA (transient ischemic attack) 08/16 Assessment & Plan (02/16/2023 11:18 AM FINE JEWELRY SALES ASSOCIATE): Secondary prevention. Continue aspirin and atorvastatin 20 [...] daily. Assessment & Plan (02/16/2023 11:12 AM FINE JEWELRY SALES ASSOCIATE): Taking atorvastatin approx 4 times per week, encouraged compliance and use of pill box and or alarms. Reviewed labs with patient. No changes made today. Assessment & Plan (08/16/2022 10:05 AM CDT): Patient occasionally forgets atorvastatin 20 mg daily, discussed use of pill box. May take missed dose the following day. Physical exam, annual 02/14/2022 Assessment & Plan (02/20/2024 11:36 AM FINE JEWELRY SALES ASSOCIATE): Preventive exam; reviewed recommended preventive screenings and vaccinations. Encourage annual flu vaccine. Wear sunscreen/protective clothing when outdoors. Assessment & Plan (02/16/2023 10:48 AM FINE JEWELRY SALES ASSOCIATE): Preventative exam. Reviewed recommended preventative screenings and vaccinations. Discussed health maintenance topics. Encourage regular physical activity. Encouraged annual flu vaccine and pneumococcal vaccine - patient declines.Reviewed labs with patient today. Repeat colonoscopy 01/10/2028. Assessment & Plan (02/14/2022 11:39 AM FINE JEWELRY SALES ASSOCIATE): Preventive exam; reviewed recommended preventive screenings and vaccinations. Encourage annual flu vaccine and pneumococcal vaccine-patient declines. Wear sunscreen/protective clothing when outdoors. Hypertension, essential 02/14/2022 Assessment & Plan (02/20/2024 2:42 PM FINE JEWELRY SALES ASSOCIATE): BP today 180/96, will add daily losartan. [...] management. Assessment & Plan (02/16/2023 11:01 AM FINE JEWELRY SALES ASSOCIATE): BP well controlled, no change in current [...] daily. Assessment & Plan (02/16/2023 11:11 AM FINE JEWELRY SALES ASSOCIATE): Reports some irritability and lack of motivation, is not taking lexapro daily as prescribed. Encouraged medication compliance and will add buspirone 10 mg bid. Assessment & Plan (08/16/2022 10:03 AM CDT): Continues escitalopram 20 mg daily. Will continue ot monitor. Assessment & Plan (02/14/2022 11:42 AM FINE JEWELRY SALES ASSOCIATE): Moods stable on current medication regimen. Will [...] monitor. Assessment & Plan (02/14/2022 11:42 AM FINE JEWELRY SALES ASSOCIATE): Discussed healthy diet and importance of regular physical activity. Aware of need for weight loss. Assessment & Plan (07/27/2021 9:58 AM CDT): Reviewed need to lose weight, reviewed health benefits. Reviewed recommendations for daily intake & activity 20-30 minutes/day. Discussed healthy diet and importance of regular physical activity. Osteopenia 07/27/2021 Assessment & Plan (02/20/2024 11:15 AM FINE JEWELRY SALES ASSOCIATE): Encouraged to call and schedule a bone density scan Assessment & Plan (02/14/2022 4:55 PM FINE JEWELRY SALES ASSOCIATE): DEXA scan 07/2021: Lumbar spine T-score is [...] attack) Assessment & Plan (02/14/2022 11:43 AM FINE JEWELRY SALES ASSOCIATE): Mild residual weakness of left arm/leg/ankle. Discussed secondary prevention. Continue atorvastatin and daily asa. Resolved Problems Problem Noted Date Diagnosed Date Resolved Date Hypertensive urgency 02/23/2019 Morbid obesity (CMS/HCC) 02/23/201912/2021 Chronic depression 02/23/2019 2 Screening for colon cancer 12/05/2017 0 07/27/2021 Overview (12/05/2017): Added automatically from request for surgery [id number] Encounters Date Type Department Care Team Description 04/10/2024 1:00 PM FINE JEWELRY SALES ASSOCIATE Therapy [facility] [place] [address] Annmarie Brown, PT Balance problem (Primary Dx); Frequent falls 04/03/2024 1:00 PM FINE JEWELRY SALES ASSOCIATE Therapy [facility] [place] [address] Efren Griffith, PT Balance problem (Primary Dx); Frequent falls 03/27/2024 2:45 PM FINE JEWELRY SALES ASSOCIATE Therapy [facility] [place] [address] Annmarie Brown, PT Balance problem (Primary Dx); Frequent falls 03/07/2024 1:45 PM FINE JEWELRY SALES ASSOCIATE Therapy [facility] [place] [address] Annmarie Brown, PT Balance problem (Primary Dx); Frequent falls 03/07/2024 Plan of Care Documentation [facility] [place] [address] 03/01/2024 10:45 AM FINE JEWELRY SALES ASSOCIATE Clinical Support [facility] [address] [phone] 03/01/2024 Orders Only [facility] [address] [phone] Deborah Escobar NP Hypertension, essential (Primary Dx) 02/20/2024 11:00 AM FINE JEWELRY SALES ASSOCIATE Office Visit [facility] [address] [phone] Deborah Escobar NP Physical exam, annual (Primary Dx); FAHAD (obstructive sleep apnea); Hypertension, essential; Encounter for screening mammogram for breast cancer; Osteopenia of lumbar spine; Balance problem; Frequent falls; Vitamin D deficiency; Class 3 severe obesity due to excess calories with serious comorbidity and body mass index (BMI) of 45.0 to 49.9 in adult (HCC) 02/19/2024 9:05 AM FINE JEWELRY SALES ASSOCIATE Lab [facility] [address] [place] [address] Impaired fasting glucose; Hypertension, essential; Mixed hyperlipidemia 02/12/2024 Telephone [facility] [address] [place] [address] Deborah Escobar NP from Last 3 Months Immunizations Name Administration Dates Next Due Influenza, [...] Pneumococcal Polysaccharide PPV23 07/27/2021(Def erred: Patient Refused) Surgical History Surgery Date Site/Laterality Comments HYSTERECTOMY Hysterectomy COLONOSCOPY 03/20/2004 - 03/19/2005 LAPAROSCOPIC GASTRIC BANDING COLON SURGERY 03/20/2010 - 03/19/2011 bulge in colon repaired BLADDER SUSPENSION 03/20/2010 - 03/19/2011 Medical History Medical History Date Comments Hx Other Medical bladder and col on repair Diverticulosis Coronary artery disease Hypertensive urgency 02/23/2019 Acute ischemic stroke (HCC) 02/24/2019 Depression TIA (transient ischemic attack) FAHAD (obstructive sleep apnea) 12/19/2023 Family History Medical History Relation Name Comments Cancer Father Early Father Cancer Maternal Grandfather Stroke Maternal Grandfather Breast cancer Maternal Grandmother Cancer Maternal Grandmother Diabetes Maternal Grandmother Heart disease Maternal Grandmother Hypertension Maternal Grandmother Breast cancer Mother Cancer Mother Diabetes Mother Heart disease Mother Hypertension Mother Cancer Other 1 Family history of Cancer; Diabetes Other 2 Family history of Diabetes mellitus; Heart disease Other 3 Family history of Heart disease; Hypertension Other 4 Family history of Hypertension; Cancer Paternal Grandfather Heart disease Paternal Grandfather Hypertension Sister Multiple sclerosis Sister Ovarian cancer Neg Hx Thyroid cancer Neg Hx Relation Name Status Comments Father Maternal Grandfather Maternal Grandmother Mother Other 1 Other 2 Other 3 Other 4 Paternal Grandfather Sister Social History Tobacco Use Types Packs/Day Years [...] on file Legal Sex Female 2:09 AM FINE JEWELRY SALES ASSOCIATE Gender Identity Female 01/02/2020 8:19 AM CDT Sexual Orientation Straight 01/02/2020 8: 19 AM CDT Occupation Industry Job Start Date Job End Date retired Not on file Not on file Not on file Obstetrics History Para Term AB IAB SAB Ectopic Multiple Livin g Live Births 4 Date Outcome GA Total Labor Labor/2nd/3rd Weight Sex Type Anes PTL Joanna A1 A5 Name Clin Last Filed Vital Signs Vital Sign Reading Time Taken Comments Blood Pressure 144/86 03/01/2024 11:02 AM FINE JEWELRY SALES ASSOCIATE Pulse 60 03/01/2024 11:02 AM FINE JEWELRY SALES ASSOCIATE Temperature 36.7 ??C (98 ??F) 02/20/2024 11:03 AM FINE JEWELRY SALES ASSOCIATE Respiratory Rate 17 02/20/2024 11:03 AM FINE JEWELRY SALES ASSOCIATE Oxygen Saturation 98% 02/20/2024 11:03 AM FINE JEWELRY SALES ASSOCIATE Inhaled Oxygen Concentration - - Weight 105.7 kg (233 lb) 02/20/2024 11:03 AM FINE JEWELRY SALES ASSOCIATE Height 152.4 cm (5') 02/20/2024 11:03 AM FINE JEWELRY SALES ASSOCIATE Body Mass Index 45.5 02/20/2024 11:03 AM FINE JEWELRY SALES ASSOCIATE Plan of Treatment Health Maintenance Due Date Last Done Comments Hepatitis C Screening 1955 DTaP/Tdap/Td Vaccine (1 - Tdap) 1966 Hepatitis B Screening 1973 Zoster Vaccine (1 of 2) 2005 Pneumococcal vaccine 65+ (1 of 1 - PCV) 2020 Breast Cancer Screening-Mammogram 06/14/2023 06/13/2022, 05/15/2021, 12/19/2019, Additional history exists Osteoporosis Screening-Bone Density Scan 08/05/2023 08/04/2021, 12/12/2017 Covid-19 Vaccine (4 - 2023-2 5 season) 2023 03/12/2021, 06/08/2020, 05/06/2020 Depression Screening 02/19/2025 02/20/2024, 08/17/2023, 06/16/2023, Additional history exists Fall Risk Assessment 02/19/2025 02/20/2024, 08/17/2023, 06/16/2023, Additional history exists Well Visit 65+ 02/19/2025 02/20/2024, 01/20, 02/14/2022 Colon Cancer Screening-Colonoscopy 01/10/2028 01/09/2018 Colon Cancer Screening-CT Colonography Discontinued 01/09/2018 Colon Cancer Screening-DNA Stool Discontinued 01/10/20 Colon Cancer Screening-FIT Discontinued 01/09/2018 Colon Cancer Screening-Sigmoidoscopy Discontinued 01/09/2018 Influenza Vaccine Discontinued Procedures Procedure Name Priority Date/Time Associated Diagnosis Comments EGFR Routine 02/19/2024 9:03 AM FINE JEWELRY SALES ASSOCIATE Hypertension, essential Mixed hyperlipidemia DIFFERENTIAL AUTO Routine 02/19/2024 9:0 3 AM FINE JEWELRY SALES ASSOCIATE Hypertension, essential Mixed hyperlipidemia CBC WITH AUTO DIFFERENTIAL Routine 02/19/2024 9:03 AM FINE JEWELRY SALES ASSOCIATE Hypertension, essential Mixed hyperlipidemia COMPREHENSIVE METABOLIC PANEL Routine 02/19/2024 9:03 AM FINE JEWELRY SALES ASSOCIATE Hypertension, essential Mixed hyperlipidemia LIPID PANEL Routine 02/19/2024 9:03 AM FINE JEWELRY SALES ASSOCIATE Hypertension, essential Mixed hyperlipidemia HEMOGLOBIN A1C Routine 02/19/2024 9:03 AM FINE JEWELRY SALES ASSOCIATE Impaired fasting glucose SCREENING MAMMOGRAM BILATERAL W [...] Maintenance Results * eGFR (02/19/2024 9:03 AM FINE JEWELRY SALES ASSOCIATE) eGFR 84 >=60 mL/min/1. 73 m2 Comment: [...] was last reviewed 2021. Testing performed by: [address], [address] Blood 02/19/2024 9:03 AM FINE JEWELRY SALES ASSOCIATE 02/19/2024 12:56 PM FINE JEWELRY SALES ASSOCIATE Deborah Escobar CHAR CONVEYOR TENDER LAB BLOOD ORDERABLES Final Result YAKOV SEGURA ([place]) 1 [facility] Department [place] [address] * Differential, auto (02/19/2024 9:03 AM FINE JEWELRY SALES ASSOCIATE) Neutrophil abs 1.9 1.5 - 6.5 K/cumm Comment:Testing performed by : [facility], [address] [place] [address]., [address] Imm gran abs 0.0 0.0 - 0.1 K/cumm YAKOV SEGURA ([place]) Comment:Testing performed by : [facility], [address] [place] [address]., [address] Lymphocyte abs 1.1 0.8 - 3.3 K/cumm YAKOV SEGURA ([place]) Comment:Testing performed by : [address], [address] Monocyte abs 0.3 0.2 - 0.8 K/cumm [facility] ([facility]) Comment:Testing performed by : [facility], [address] [place] [address]., [address] Eosinophil abs 0.2 0.0 - 0.5 K/cumm [facility] ([facility]) Comment:Testing performed by : [facility], [address] [place] [address]., [address] Basophil abs 0.1 0.0 - 0.1 K/cumm [facility] ([facility]) Comment:Testing performed by : [facility], [address] [place] [address]., [address] Neutrophil pct 52.7 % [facility] ([facility]) Comment: Interpretive Data Percent cell count reference ranges are not reported, since discordance with absolute values may lead to misinterpretation of CBC data. Current Interpretive Data was last revised on 2017. Testing performed by: [address] [address] Imm gran pct 0.0 % [facility] ([facility]) Comment: Interpretive Data Percent cell count reference ranges are not reported, since discordance with absolute values may lead to misinterpretation of CBC data. Current Interpretive Data was last revised on 2017. Testing performed by: [address] [address] Lymphocyte pct 31.6 % [facility] ([facility]) Comment: Interpretive Data Percent cell count reference ranges are not reported, since discordance with absolute values may lead to misinterpretation of CBC data. Current Interpretive Data was last revised on 2017. Testing performed by: [address] [address] Monocyte pct 8.4 % [facility] ([facility]) Comment: Interpretive Data Percent cell count reference ranges are not reported, since discordance with absolute values may lead to misinterpretation of CBC data. Current Interpretive Data was last revised on 2017. Testing performed by: [address] [address] Eosinophil pct 5.9 % [facility] ([facility]) Comment: Interpretive Data Percent cell count reference ranges are not reported, since discordance with absolute values may lead to misinterpretation of CBC data. Current Interpretive Data was last revised on 2017. Testing performed by: [facility], [address] [place] [address]., [address] Basophil pct 1.4 % [facility] ([facility]) Comment: Interpretive Data Percent cell count reference ranges are not reported, since discordance with absolute values may lead to misinterpretation of CBC data. Current Interpretive Data was last revised on 2017. Testing performed by: [address], [address] Blood 02/19/2024 9:03 AM FINE JEWELRY SALES ASSOCIATE 02/19/2024 12:45 PM FINE JEWELRY SALES ASSOCIATE Deborah Escobar CHAR CON[employer]YOR TENDER LAB BLOOD ORDERABLES Final Result YAKOV SEGURA ([place]) 1 [facility] Department [place] [address] * (ABNORMAL) CBC with auto differential (02/19/2024 9:03 AM FINE JEWELRY SALES ASSOCIATE) WBC 3.6(L) 3.8 - 9.9 K/cumm Comment:Testing performed by : [address], [address] Hgb 13.1 11.9 - 15.5 g/dL [facility] ([facility]) Comment:Testing performed by : [address], [address] Hct 42.3 35.6 - 45.5 % [facility] ([facility]) Comment:Testing performed by : [address], [address] Plt 244 150 - 400 K/cumm [facility] ([facility]) Comment:Testing performed by : [address], [address] MPV 9.0(L) 9.1 - 12.3 fL [facility] ([facility]) Comment:Testing performed by : [address], [address] RBC 4.51 3.90 - 5.20 M/cumm [facility] ([facility]) Comment:Testing performed by : [address], [address] MCV 93.8 81.3 - 96.4 fL YAKOV SEGURA ([place]IENCE) Comment:Testing performed by : [facility], [address] [place] [address], [address] MCH 29.0 27.1 - 33.3 pg YAKOV SEGURA ([place]) Comment:Testing performed by : [facility], [address] [place] [address], [address] MCHC 31.0(L) 32.3 - 35.7 g/dL YAKOV SEGURA ([place]IENCE) Comment:Testing performed by : [facility], [address] [place] [address], [address] RDW CV 13.6 11.1 - 14.9 % YAKOV SEGURA ([place]IENCE) Comment:Testing performed by : [address], [address] RDW SD 46.6 35.7 - 48.1 fL YAKOV SEGURA ([place]IENCE) Comment:Testing performed by : [address], [address] NRBC abs 0.00 0.00 - 0.01 K/cumm YAKOV SEGURA ([place]IENCE) Comment:Testing performed by : [facility], [address] [place] [address], [address] Blood 02/19/2024 9:03 AM FINE JEWELRY SALES ASSOCIATE 02/19/2024 12:45 PM FINE JEWELRY SALES ASSOCIATE Debroah Escobar CHAR CON[employer]YOR TENDER LAB BLOOD ORDERABLES Final Result YAKOV SEGURA ([place]) 1 [facility] Department [place] [address] * (ABNORMAL) Hemoglobin A1c (02/19/2024 9:03 AM FINE JEWELRY SALES ASSOCIATE) Hgb A1C 6.0(H) 4.0 - 5.6 % Comment:Testing performed by : [address], [address] Estimated Average Glucose 126 mg/dL YAKOV SEGURA (PATIENCE) Comment: The ADA recommends reporting an estimated Average Glucose (eAG) with all Hemoglobin A1c results using the equation derived from a study of 507 normal and diabetic adults. ??Minority populations were underrepresented and children were not included. ?? (Diabetes Care 31:5183-3806, 2008). ??The eAG is not equivalent to a fasting glucose. Testing performed by: [facility], [address] [place] [address]., [address] Blood 02/19/2024 9:03 AM FINE JEWELRY SALES ASSOCIATE 02/19/2024 12:45 PM FINE JEWELRY SALES ASSOCIATE Deborah Escobar CHAR CON[employer]YOR TENDER LAB BLOOD ORDERABLES Final Result YAKOV SEGURA ([place]) 1 [facility] Department [place] [address] * Lipid panel (02/19/2024 9:03 AM FINE JEWELRY SALES ASSOCIATE) Cholesterol 132 30 - 199 mg/dL Comment: [...] last revised on 2017. Testing performed by: [facility], [address] [place] [address], [place]., [address] Triglycerides 82 <=149 mg/dL YAKOV SEGURA (PATIENCE) [...] last revised on 2017. Testing performed by: [facility], [address] [place] [address]., [address] HDL 52 >=40 mg/dL YAKOV Flores (PATIENCE) [...] last revised on 2017. Testing performed by: [facility], [address] [place] [address]., [address] LDL, calculated 64 <=129 mg/dL YAKOV SEGURA ([place]IENCE) Comment: Interpretive Data Ages < or = 19 years ??Acceptable: ? <110 mg/dL ??Borderline high: ??110-129 mg/dL ??High: ?>or= 130 mg/dL Ages > or = 20 years ??Optimal: ? <100 mg/dL ??Near optimal: ?100-129 mg/dL ??Borderline high: ?? 130-159 mg/dL ??High: ?>160 mg/dL Calculated using the Nawaf LDL-C estimating equation. This equation was implemented [...] last revised on 2023. Testing performed by: [address] [address] Non-HDL Cholesterol 80 mg/dL YAKOV SEGURA (PATIENCE) [...] last revised on 2017. Testing performed by: [facility], [address] [place] [address]., [address] Chol/HDL ratio 3 CATALINA SEGURA (PATIENCE) Comment:Testing performed by : [address] [address] Blood 02/19/2024 9:03 AM FINE JEWELRY SALES ASSOCIATE 02/19/2024 12:45 PM FINE JEWELRY SALES ASSOCIATE Deborah Escobar NP LAB BLOOD ORDERABLES Final Result YAKOV SEGURA ([place]) 1 [facility] Department [place] [address] * Comprehensive metabolic panel (02/19/2024 9:03 AM FINE JEWELRY SALES ASSOCIATE) Sodium 143 135 - 145 mmol/L Comment:Testing performed by : [facility], [address] [place] [address]., [address] Potassium, pl 3.9 3.3 - 4.9 mmol/L [facility] ([facility]) Comment:Testing performed by : [facility], [address] [place] [address], [address] Chloride 106 97 - 110 mmol/L [facility] ([facility]) Comment:Testing performed by : [facility], [address] [place] [address], [address] CO2 27 22 - 32 mmol/L [facility] ([place]) Comment:Testing performed by : [address], [address] Anion gap 10 2 - 15 mmol/L [facility] ([place]) Comment:Testing performed by : [facility], [address] [place] [address], [address] BUN 14 6 - 25 mg/dL [facility] ([facility]) Comment:Testing performed by : [address], [address] Creatinine 0.77 0.60 - 1.10 mg/dL [facility] (PATIENCE) Comment:Testing performed by : [address], [address] Glucose 118 70 - 199 mg/dL [facility] (PATIENCE) Comment: Interpretive Data Fasting glucose >/= [...] classification and Diagnosis of Diabetes Diabetes Care 202; 46: S19-S40. Current interpretive data was last revised 2022. Testing performed by: [address], [address] Calcium 9.1 8.5 - 10.3 mg/dL [facility] ([facility]) Comment:Testing performed by : [facility], [address] [place] [address], [address] Bilirubin, total 0.5 0.1 - 1.2 mg/dL [facility] ([facility]) Comment:Testing performed by : [facility], [address] [place] [address], [address] Protein, pl 6.7 6.5 - 8.5 g/dL [facility] ([facility]) Comment:Testing performed by : [facility], [address] [place] [address], [address] Albumin 3.8 3.5 - 5.0 g/dL [facility] ([facility]) Comment:Testing performed by : [address], [address] Alk phos 84 40 - 130 Units/L [facility] ([facility]) Comment:Testing performed by : [address], [address] ALT 7 7 - 45 Units/L [facility] ([facility]) Comment:Testing performed by : [facility], [address] [place] [address], [address] AST 25 10 - 45 Units/L [facility] ([facility]) Comment:Testing performed by : [address], [address] Blood 02/19/2024 9:03 AM FINE JEWELRY SALES ASSOCIATE 02/19/2024 12:45 PM FINE JEWELRY SALES ASSOCIATE Deborah Escobar CHAR CON[employer]YOR TENDER LAB BLOOD ORDERABLES Final Result [facility] ([place]) 1 [facility] Department [place] [address] * Screening Mammogram Bilateral W Owen (06/13/2022 [...] ?? F ??with given history of screening. Operators School Manager/Model: ?? [employer] SL (S/N [id number]) CLINICAL INFORMATION: Current height: ?? 60 ??inches [...] PM T: ??08/04/2021 9:48 PM Report ID: [id number] Reading Location: ??[id number] Procedure Note Pa Ruiz MD - 08/04/2021 EXAM DESCRIPTION: DEXA AXIAL SKELETON BONE DENSITY 1 OR MORE SITES REASON FOR STUDY: 66 y/o year old F with given history ofscreening. Operators School Manager/Model: Gan[employer]ara (S/N [id number]) CLINICAL INFORMATION: Current height: 60 inches Maximum [...] 08/04/2021 9:48 PM - Electronically signed by Pa Ruiz M.D. MF: MF Report ID: [id number] Reading Location: [id number] us Karolyn RSerg Morrissey CHAR CONVEYOR TENDER IMG DXA PROCEDURES Final Result * COLONOSCOPY (01/09/2018 10:18 AM CDT) Anatomical Region Laterality Modality Other Narrative Procedure Note Alphonso Morgan MD - 01/09/2018 10:18 AM CDT [facility] Patient Name: Deb Esposito Procedure Date: 01/09/2018 10:18AM Date of : 1955 Admit Type: Outpatient Age: 62 Gender: Female Attending MD: Alphonso Morgan M.D. Room: [facility] ENDOSCOPY ROOM 1 Note Status: Finalized Procedure: [...] scope was passed under direct vision.The Colonoscope [id number] was introducedthrough the anus and advanced to [...] malignant neoplasm of colon CPT copyright 2017 [employer]. All rights reserved. The codes documented in this report are preliminary and upon composite mechanic reviewmay be revised to meet current compliance requirements. Recognized by the [employer] for promoting quality in endoscopy us Alphonso Morgan MD ENDOSCOPY PROCEDURES Final Re sult from Last 3 Months or Most Recently Relevant to Health Maintenance Insurance MEDICARE COMMERCIAL GENERIC [facility] CHOICE PLUS MEDICARE COMMERCIAL GENERIC MEDICARE SOLUTIONS Advance Directives For more information, please contact: [phone] * Full Code (Latest Code Status on File) Date Activated Date Inactivated Comments 02/23/2019 3:05 PM 02/25/2019 7:24 PM * Full Code Date Activated Date Inactivated Comments 01/09/2018 9:46 AM 01/09/2018 1:32 PM * Full Code Date Activated Date Inactivated Comments 01/09/2018 9:46 AM 01/09/2018 9:46 AM Care Teams Pathology Laboratory Director Relationship Specialty Start Date End Date Enrique Gorman [place] [address] PCP - General Family Medicine 02/09/21 Pa Urbano MD [address] [place] [address] [place] [address] Consulting Physician Neurology 02/25/19
[2024-04-16 08:41] VITALS: BP 147/94; PULSE 65; RESP 18; TEMP 36.1; O2SAT 98
[2024-04-16 09:00] LABS: EDUAAPPEAR Cloudy; EDUABILI 1+ (Negative); EDUABLOOD 3+ (Negative); EDUACOLOR1 Brown; EDUAGLUCOSE Negative (Negative); EDUAKETONE Negative (Negative); EDUALEUKO Negative (Negative); EDUANITRATE Positive (Negative); EDUAPH 5.5; EDUAPROTEIN 2+ (Negative)
--- NOTE | 2024-04-16 09:03 | ED_ITS ---
HPI - General Adult General Chief complaint: Urogenital-Female Stated complaint: Urinary Problem Source: patient Mode of arrival: ambulatory Limitations: no limitations History of Present Illness HPI narrative: Patient presents for evaluation of urinary symptoms since yesterday. Symptoms include hematuria and urinary hesitancy. She denies any fever, chills, nausea, vomiting, abdominal pain, dysuria, urinary frequency or low back pain. She is not taking any medication to assist with her symptoms. Related Data Home Medications ?Medication ?Instructions ?Recorded ?Confirmed ?Last Taken ?Type atorvastatin 20 mg tablet 20 mg PO DAILY 05/05/19 05/08/20 Unknown History escitalopram oxalate 10 mg tablet 10 mg PO DAILY 05/05/19 05/08/20 Unknown History aspirin 81 mg tablet 81 mg PO DAILY 05/08/20 05/08/20 Unknown History ergocalciferol (vitamin D2) 1,250 1,250 mcg PO DAILY 05/08/20 05/08/20 Unknown History mcg (50,000 unit) capsule gabapentin 100 mg capsule 100 mg PO DAILY 05/08/20 05/08/20 Unknown History Allergies Allergy/AdvReac Type Severity Reaction Status Date / Time No Known Allergies Allergy Verified 05/05/19 15:22 Review of Systems Review of Systems: CONSTITUTIONAL: Denies fever, chills, or sweats. EYES: Denies visual changes, redness, or discharge. ENT: Denies rhinorrhea, congestion, sore throat, or otalgia. CARDIOVASCULAR: Denies chest pain, palpitations, or edema. RESPIRATORY: Denies cough or dyspnea. GASTROINTESTINAL: Denies abdominal pain, nausea, vomiting, or diarrhea. GENITOURINARY: Reports urinary hesitancy and hematuria. Denies dysuria or urinary frequency SKIN: Denies rash or itching. MUSCULOSKELETAL: Denies back pain, joint pain, or myalgia. NEUROLOGIC: Denies headache, numbness, dizziness, or weakness. PSYCHIATRIC: Denies anxiety or depression. [facility] Past Medical History Medical History Depression Bronchitis UTI (urinary tract infection) TIA (transient ischemic attack) Surgical History Surgical History History of bladder surgery Hx of laparoscopic gastric banding History of partial hysterectomy Family History Family History Mother Family history non-contributory Social History Social History Smoking status: Never smoker Living arrangements: with family Gender identity (if verbalized by the patient): Female Exam Narrative: GENERAL: Well-appearing, well-nourished, and in no acute distress. HEAD: Normocephalic, atraumatic. EYES: PERRLA and EOMI. ENT: Nares clear, no rhinorrhea or epistaxis. Mucous membranes moist. Oropharynx without tonsillar hypertrophy exudate or other lesions. Bilateral TMs pearly peck nonbulging NECK: Supple. No adenopathy or masses. No carotid bruits or JVD CHEST: Clear to auscultation. No respiratory distress. No wheezes rales or rhonchi HEART: Regular rate and rhythm. No murmur heard. Normal peripheral pulses. ABDOMEN: Soft, nontender, nondistended, normal active bowel sounds. BACK: No CVA tenderness EXTREMITIES: Normal range of motion. No edema. SKIN: Warm, dry, no rash. NEURO: No focal deficits. Alert and oriented x3. PSYCH: Normal mood and affect. Course Course Emergency Course: This is a 69-year-old female who presented for evaluation of urinary symptoms. Urine dipstick with evidence of UTI. Will send urine culture. Start bactrim. Increase hydration. [id number] agents for symptom management. Follow up with primary provider. Go to the ER for worsening symptoms. Patient in agreement with plan of care. Level of Care: Express Care Visit Vital Signs Vital signs: Vital Signs Temperature 36.1 C L 04/16/24 08:41 Pulse Rate 65 04/16/24 08:41 Respiratory Rate 18 04/16/24 08:41 Blood Pressure 147/94 H 04/16/24 08:41 Pulse Oximetry 98 04/16/24 08:41 Oxygen Delivery Room Air 04/16/24 08:41 Temperature 36.1 C L 04/16/24 08:41 Pulse Rate 65 04/16/24 08:41 Respiratory Rate 18 04/16/24 08:41 Blood Pressure 147/94 H 04/16/24 08:41 Pulse Oximetry 98 04/16/24 08:41 Oxygen Delivery Room Air 04/16/24 08:41 Medical Decision Making Vital Signs Vital Signs: Vital Signs Temperature 36.1 C L 04/16/24 08:41 Pulse Rate 65 04/16/24 08:41 Respiratory Rate 18 04/16/24 08:41 Blood Pressure 147/94 H 04/16/24 08:41 Pulse Oximetry 98 04/16/24 08:41 Oxygen Delivery Room Air 04/16/24 08:41 Temperature 36.1 C L 04/16/24 08:41 Pulse Rate 65 04/16/24 08:41 Respiratory Rate 18 04/16/24 08:41 Blood Pressure 147/94 H 04/16/24 08:41 Pulse Oximetry 98 04/16/24 08:41 Oxygen Delivery Room Air 04/16/24 08:41 Lab Data Labs: Lab Results 04/16/24 Range/Units 08:59 POC Urine Color Brown POC Urine Clarity Cloudy POC Urine pH 5.5 POC Ur Specif [place] 1.030 POC Urine Protein 2+ (Negative) POC Ur Glucose (UA) Negative (Negative) POC Urine Ketones Negative (Negative) POC Urine Blood 3+ (Negative) POC Urine Nitrite Positive (Negative) POC Urine Bilirubin 1+ (Negative) POC Urine Urobilinogen 1.0 POC U Leukocyte Esteras Negative (Negative) Discharge Plan Discharge Clinical Impression: UTI (urinary tract infection) Patient Disposition: Home, Self-Care Condition: Stable Instructions: Antibiotic Form, Urinary Tract Infection in Women (ED) Patient Language: Mongolian Prescriptions: New sulfamethoxazole-trimethoprim [Bactrim DS] 800-160 mg tablet 1 tablet PO Q12H Qty: 14 0RF No Action atorvastatin 20 mg Tablet 20 mg PO DAILY escitalopram oxalate 10 mg Tablet 10 mg PO DAILY gabapentin 100 mg capsule 100 mg PO DAILY ergocalciferol (vitamin D2) 1,250 mcg (50,000 unit) capsule 1,250 mcg PO DAILY aspirin 81 mg Tablet 81 mg PO DAILY Follow-up/Referrals: Harms,Enrique Dennison M.D. [Primary Care Provider] - Time of Disposition: 09:
== END 2024-04-16 09:06 | disposition home or self-care (01) ==
PROVIDERS: Emergency Provider Nurse Practitioner; PCP Family Medicine
DX: N39.0 Urinary tract infection, site not specified (principal); B96.20 Unspecified Escherichia coli [E. coli] as the cause of diseases classified elsewhere; F32.A Depression, unspecified; Z86.73 Personal history of transient ischemic attack (TIA), and cerebral infarction without residual deficits; Z90.711 Acquired absence of uterus with remaining cervical stump; Z79.82 Long term (current) use of aspirin
CPT/HCPCS: 81003; 87086; 87186; 99213; G0463